=== PATIENT | female | born 1970 | race African-American/Black ===

== ENCOUNTER 2021-07-06 15:43 | Emergency (ER) | payer OTHER ==
[~2021-07-06] VITALS: Ht 162.6 cm; Wt 93.0 kg
[2021-07-06] MEDS ORDERED: FAMOTIDINE 20 MG TAB PO ONE (16:45)
[2021-07-06] MEDS ORDERED: PREDNISONE50 MG PO (16:45)
[2021-07-06] MEDS ORDERED: PREDNISONE 20 MG TAB PO ONE (16:45)
[2021-07-06] MEDS ORDERED: PREDNISONE 20 MG TAB ONE (16:51)
[2021-07-06] MEDS ORDERED: FAMOTIDINE 20 MG TAB ONE (16:51)
== END 2021-07-06 18:22 | disposition home or self-care (01) ==
LOC: FSED 16:47
DX: T78.3XXA Angioneurotic edema, initial encounter (principal); W22.8XXA Striking against or struck by other objects, initial encounter; I10 Essential (primary) hypertension
CPT/HCPCS: 99282; J7512